=== PATIENT | male | born 1955 | race Caucasian/White ===

== ENCOUNTER 2022-05-20 09:58 | Emergency (ER) | payer SELFPAY ==
[2022-05-20 10:39] VITALS: BP 178/103; PULSE 93; RESP 18; TEMP 97.4; BMI 27.3
== END 2022-05-20 11:38 | disposition home or self-care (01) ==
LOC: JERFT 09:58
DX: M54.42 Lumbago with sciatica, left side (principal)
CPT/HCPCS: 72100-TC-FY; 99283-25